=== PATIENT | male | born 1985 ===

== ENCOUNTER 2024-11-11 15:21 | Emergency (ER) | payer OTHER, SELFPAY ==
[2024-11-11 15:25] VITALS: BP 133/91
--- NOTE | 2024-11-11 17:14 | ED.MUSCINJ ---
HPI-Injury
General
Chief Complaint: Musculo-Skeletal Complaint
Source: patient
Exam Limitations: none
Time Seen by Provider: 11/11/24 16:01
Nursing documentation reviewed up to this point in time: agreed with
History of Present Illness-Injury
Initial Injury comments:
39-year-old male presents with right shoulder pain that has gradually worsened over the past 4 days. He took Advil with a little relief yesterday. He is unable to raise his arm due to the pain. Last night he was awakened in the middle of the
night due to the pain. 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
Past History
Past History
ED Past Medical History: None
ED Past Surgical History: None
Social History
Tobacco: Smoker
Alcohol: None
Personal:
Living: with family
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
Review of Systems
Review of Systems
Allergies reviewed?: Yes
All Other Systems: ROS reviewed and negative except as documented in HPI and ROS
Musculoskeletal: Reports other (right shoulder pain, anterior); Denies neck pain
Skin: Reports no symptoms
Neurological: Denies numbness
Musculoskeletal Injury Exam
Musculoskeletal Injury Exam
Right Anterior Shoulder:
Pain with Movement?: Moderate
Tender to palpation?: Moderate (point tender over anterior humeral head)
Soft tissue swelling?: None
Crepitus with movement?: No
Joint instability?: No
Range of motion: Limited
Distal skin color and temperature: normal-warm & good color
Capillary Refill: normal
Normal distal neurovascular exam?: Yes
Phy Exam
Physical Exam
Physical Exam:
GENERAL: No acute distress. A&Ox3.
CONSTITUTIONAL: Afebrile.
RESPIRATORY: Regular respirations, nonlabored, lungs clear.
CARDIOVASCULAR: Regular rate and rhythm, no murmurs, no rubs.
MUSCULOSKELETAL: Moves with ease. Well perfused.
SKIN: Warm, dry, pink
PSYCH: Normal mood and affect. Well kept, interactive and appropriate
NEUROLOGIC: Awake, alert and oriented. No focal neurological deficits
Injury Course
Orders/Labs/Results
Orders:
Orders
11/11/24 15:32
Shoulder, Right, Trauma [CR Shoulder, Trauma - Right] Urgent
Comment:
Reason For Exam: pain
MDM/Problems Addressed
Differential Diagnosis Includes:
shoulder sprain/strain, bursitis, tendinitis
MDM/Problems Addressed:
39-year-old male presents with right shoulder pain that has gradually worsened over the past 4 days. He took Advil with a little relief yesterday. He is unable to raise his arm due to the pain. Last night he was awakened in the middle of the
night due to the pain. 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
xray right shoulder: normal
Will treat for shoulder bursitis/tendinitis. Prescription for prednisone 40 mg daily for 5 days sent to his pharmacy.
Referred to orthopedics for follow-up if not improving
*Critical Care Note
Total Time (30-74mins, 75-104mins- exclusive of procedures): Not Applicable
ED Attending Note
-
Portions of this chart may have been created with voice recognition software.� Occasional wrong word or��sound alike� substitutions may have occurred due to the inherent limitations of voice recognition software.
Discharge Plan
Departure
Patient Disposition: Home (Routine Discharge)
Date of Disposition: 11/11/24
Time of Disposition: 17:08
Patient with high blood pressure during this ER visit?: No
Condition: Good
Discharge Problem:
Acute pain of right shoulder
Instructions: Shoulder Bursitis Exercises, Shoulder pain - ED discharge instructions
Prescriptions:
New
prednisone 20 mg tablet
40 mg PO DAILY Qty: 10 0RF
Referrals:
Saldana,Cindy I., DO [Active] - Next open appointment
Jannie Heredia MD [Family Provider] -
Activity Restrictions/Additional Instructions:
As we discussed, you most likely have shoulder bursitis.
I sent a prescription to your pharmacy for prednisone to take 40 mg a day for the next 5 days to reduce the inflammation.
You may continue to take ibuprofen 400 mg with Tylenol (acetaminophen) 500 mg together up to 3 times a day as needed for pain
See the orthopedic doctor in 7 to 14 days if you are not much improved within the next week.
Avoid using the right arm for 2-3 days until the inflammation is better.
If you are not improving, you may need further evaluation and maybe further imaging such as MRI.
Interventions
Interventions:
*Risk Screen - Suicide Last Done: 11/11/24 15:25
*General Assessment Last Done: 11/11/24 15:25
*Neglect/Abuse Screening Last Done: 11/11/24 15:25
*ED- Fall Risk Assessment Last Done: 11/11/24 15:25
*ED COVID-19 Vaccine History Last Done: 11/11/24 15:25
*Nursing Disposition Last Done: 11/11/24 17:35
ED-Musculoskeletal Assessment Last Done: 11/11/24 17:34
Discharge Date and Time
Discharge Date/Time: 11/11/24 17:36
Print Language: SAMI
== END 2024-11-11 17:36 | disposition home or self-care (01) ==
LOC: EMR 15:21
PROVIDERS: EMERGENCY PHYSICIAN Emergency Medicine; FAMILY PHYSICIAN Internal Medicine Cardiovascular Disease
DX: M25.511 Pain in right shoulder (principal); F17.200 Nicotine dependence, unspecified, uncomplicated
CPT/HCPCS: 99283; 73030